=== PATIENT | male | born 1990 | race Hispanic/Latino ===

== ENCOUNTER 2023-03-21 18:12 | Emergency (ER) | payer OTHER ==
[2023-03-21] MEDS ORDERED: BUPIVACAINE 0.5% PF 10 ML VIAL ONE (18:48)
[2023-03-21] MEDS ORDERED: LIDOCAINE 1% 20 ML MDV ONE (18:48)
[2023-03-21] MEDS ORDERED: CEFAZOLIN SODIUM 1 GM/VIAL ONE (18:49)
[2023-03-21 18:57] LABS: Absolute Lymphocytes (CBC) 1.5 K/uL (0.7-4.9); Hematocrit 39.2 % (39.6-49.0); Lymphocytes % 22.5 % (15.3-44.8); MCV 89.6 fL (80-100); MPV 7.8 fL (7.6-11.3); Platelets 281 thou/uL (152-406); RBC Red Blood Cell Count 4.38 M/uL (4.33-5.43)
[2023-03-21 19:02] LABS: Protime INR 1.17
[2023-03-21] MEDS ORDERED: MORPHINE 4 MG/ML SYR ONE (19:05)
[2023-03-21] MEDS ORDERED: NA CHLORIDE 0.9% 1,000 ML ONE (19:06)
[2023-03-21] MEDS ORDERED: ONDANSETRON 4 MG/2 ML VIAL ONE (19:06)
[2023-03-21] MEDS ORDERED: TDAP (DIPHTH,PERTUSS(ACELL),TET VAC) 0.5 ML VIAL IMVAC ONE (19:06)
[2023-03-21 19:19] LABS: Potassium 3.8 mEq/L (3.5-5.1)
--- NOTE | 2023-03-21 20:22 | RAD REPORT ---
EXAM DESCRIPTION: RAD - Hand Right 3 View - 03/21/2023 8:03 pm CLINICAL HISTORY: Right hand pain status post injury FINDINGS: A portion of the third distal phalanx has been amputated No dislocation
--- NOTE | 2023-03-21 21:20 | EDPHYS ---
Physician Documentation [facility] Name: Shashi Tesfaye Jr Age: 32 yrs Sex: Male : 1990 Arrival Date: 03/21/2023 Time: 18:12 Bed 15 Private MD: ED Physician Roscoe Tate HPI: 03/21 18:45 This 32 yrs old Male presents to ER via Law [employer] with complaints of cp Finger Injury. 18:45 The patient or guardian reports injury. cp 18:45 The complaints affect the distal phalanx right middle finger. Context: resulted from a cp crush injury, metal cell door. Onset: The symptoms/episode began/occurred today. Associated signs and symptoms: The patient has no apparent associated signs or symptoms. Historical: - Allergies: 18:26 No Known Allergies; eh3 - Immunization history:: Adult Immunizations up to date. - Social history:: Smoking status: unknown. ROS: 18:50 MS/extremity: Positive for injury or acute deformity, of the distal phalanx of right cp middle finger. 18:50 Constitutional: Negative for body aches, chills, fever, poor PO intake. cp 18:50 Respiratory: Negative for cough, shortness of breath, wheezing. 18:50 All other systems are negative. Exam: 19:00 Constitutional: The patient appears in no acute distress, alert, awake, cp non-diaphoretic, well developed, well nourished, uncomfortable. 19:00 Head/Face: Normocephalic, atraumatic. cp 19:00 Neck: ROM/movement: is normal, is supple, without pain, no range of motions limitations. 19:00 Chest/axilla: Inspection: normal. 19:00 Cardiovascular: Rate: normal, Rhythm: regular. 19:00 Respiratory: the patient does not display signs of respiratory distress, Respirations: normal, no use of accessory muscles, no retractions, labored breathing, is not present, Breath sounds: are clear throughout, no decreased breath sounds, no stridor, no wheezing. 19:00 Abdomen/GI: Exam negative for discomfort, distension, guarding, Inspection: abdomen appears normal. 19:00 Musculoskeletal/extremity: Extremities: grossly normal except: noted in the right middle finger: Exam of right middle finger shows complete amputation through proximal portion of distal phalanx of right middle finger. Noted to bony exposure and mild bleeding once dressing is removed, Perfusion: the extremity is normally perfused throughout, Severe pain noted. Vital Signs: 18:32 BP 148 / 82; Pulse 72; Resp 18; Temp 98.4(O); Pulse Ox 99% on R/A; Weight 83.46 kg; eh3 18:32 BP 148 / 82; Pulse 72; Resp 18; Temp 98.4; Pulse Ox 99% on R/A; eh3 19:25 BP 134 / 78; Pulse 56; Resp 17; Pulse Ox 100% ; vc1 20:00 BP 135 / 78; Pulse 63; Resp 17; Temp 100; vc1 20:45 BP 139 / 76; Pulse 74; Resp 17; Pulse Ox 99% ; vc1 22:15 BP 141 / 80; Pulse 60; Resp 17; Pulse Ox 98% ; vc1 MDM: 18:38 Patient medically screened. cp 19:00 Differential diagnosis: dislocation, open fracture, closed fracture, contusion. 20:45 Data reviewed: vital signs, nurses notes, lab test result(s), radiologic studies, plain cp films. 20:45 I considered the following discharge prescriptions or medication management in the emergency department Medications were administered in the Emergency Department. See MAR Digital block performed using approximately 6 cc of a 50-50 mixture of 1% lidocaine without epi and 0.5% Marcaine. ED course: VSS. Pressure dressing applied. Consult with hand surgeon at [facility], DR Carpio will accept after discussion. 03/21 18:40 Order name: Basic Metabolic Panel; Complete Time: 19:32 cp 03/21 18:40 Order name: CBC with Diff; Complete Time: 19:32 cp 03/21 18:40 Order name: PT-INR; Complete Time: 19:32 cp 03/21 19:32 Order name: XRAY Hand RIGHT 3 View; Complete Time: 20:43 cp 03/21 18:40 Order name: Labs collected and sent; Complete Time: 18:50 cp 03/21 20:16 Order name: Misc. Order: pressure dressing; Complete Time: 20:36 cp Administered Medications: 18:55 Drug: ceFAZolin IVPB 1 grams Route: IVPB; Site: left antecubital; 3 18:55 Drug: morphine IVP or IV 4 mg Route: IVP; Infused Over: 4 mins; Site: left antecubital; 3 21:18 Follow up: Response: No adverse reaction; Marked relief of symptoms; Pain is decreased vc1 18:55 Drug: Ondansetron IVP 4 mg Route: IVP; Site: left antecubital; eh3 21:18 Follow up: Response: No adverse reaction; Marked relief of symptoms; Nausea is decreasedvc1 18:55 Drug: NS 0.9% IV 1000 ml Route: IV; Rate: 1 bolus; Site: left antecubital; 3 19:00 Drug: Tetanus-Diphtheria Toxoid IM Adult 0.5 ml {Technician: [employer] ([employer]). 3 Exp: 09/01/2023. Lot #: [id number]. } Route: IM; Site: right deltoid; 21:18 Follow up: Response: (VIS) Vaccine information sheet provided today. Questions and/or vc1 concerns addressed. VIS edition date: Mar 20, 2021.; No adverse reaction 19:30 Drug: Lidocaine Infiltration (2 %) 5 ml {Note: administered to right middle finger by vc1 PA. 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 Pressure dressing applied. Consult with hand surgeon at [facility]. 03/22 22:29 22:28 Differential diagnosis: dislocation, open fracture, closed fracture, contusion, cpcp
--- NOTE | 2023-03-21 21:20 | ER ---
Nurse's Notes 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 Coronavirus screen: Vaccine status: Patient reports receiving the 2nd dose of the covid vaccine. Ebola Screen: No symptoms or risks identified at this time. Risk Assessment: Do you want to hurt yourself or someone else? Patient reports no desire to harm self or others. Onset of symptoms was March 21, 2023. 18:25 Method Of Arrival: Law Enforcement: [place] [employer] 3 18:25 Acuity: TEJAS 3 eh3 18:32 Initial Sepsis Screen: Does the patient meet any 2 criteria? No. Patient's initial 3 sepsis screen is negative. Does the patient have a suspected source of infection? No. Patient's initial sepsis screen is negative. Triage Assessment: 18:26 General: Appears in no apparent distress. uncomfortable, Behavior is calm, cooperative, eh3 appropriate for age. Pain: Complains of pain in right hand. Neuro: Level of Consciousness is awake, alert, obeys commands, Oriented to person, place, time, situation. Cardiovascular: Capillary refill < 3 seconds Patient's skin is warm and dry. Respiratory: Airway is patent Respiratory effort is even, unlabored, Respiratory pattern is regular, symmetrical. GI: Abdomen is round non-distended. Derm: Skin is pink, warm \T\ dry. Musculoskeletal: Circulation, motion, and sensation intact. Injury Description: Amputation sustained to dorsal aspect of distal phalanx of right middle finger and palmar aspect of distal phalanx of right middle finger is complete, was sustained 30-60 minutes ago. Historical: - Allergies: 18:26 No Known Allergies; eh3 - Immunization history:: Adult Immunizations up to date. - Social history:: Smoking status: unknown. Screenin:33 [facility] ED Fall Risk Assessment (Adult) Score/Fall Risk Level 0 - 2 = Low Risk. Abuse eh3 screen: Denies threats or abuse. Denies injuries from another. Nutritional screening: No deficits noted. Tuberculosis screening: No symptoms or risk factors identified. Assessment: 18:33 Reassessment: No changes from previously documented assessment. See triage assessment. eh3 19:00 Reassessment: Patient appears in no apparent distress at this time. Patient and/or eh3 family updated on plan of care and expected duration. Pain level reassessed. Patient is alert, oriented x 3, equal unlabored respirations, skin warm/dry/pink. 20:00 Reassessment: No changes from previously documented assessment. Patient and/or family vc1 updated on plan of care and expected duration. Pain level reassessed. Patient is alert, oriented x 3, equal unlabored respirations, skin warm/dry/pink. 21:00 Reassessment: No changes from previously documented assessment. Patient and/or family vc1 updated on plan of care and expected duration. Pain level reassessed. Patient is alert, oriented x 3, equal unlabored respirations, skin warm/dry/pink. waiting on [facility] to accept transfer. 21:59 Reassessment: Attempted to call report, asked to call back in 15 minutes. vc1 22:25 Reassessment: No changes from previously documented assessment. Patient and/or family vc1 updated on plan of care and expected duration. Pain level reassessed. Patient is alert, oriented x 3, equal unlabored respirations, skin warm/dry/pink. Vital Signs: 18:32 BP 148 / 82; Pulse 72; Resp 18; Temp 98.4(O); Pulse Ox 99% on R/A; Weight 83.46 kg; eh3 18:32 BP 148 / 82; Pulse 72; Resp 18; Temp 98.4; Pulse Ox 99% on R/A; eh3 19:25 BP 134 / 78; Pulse 56; Resp 17; Pulse Ox 100% ; vc1 20:00 BP 135 / 78; Pulse 63; Resp 17; Temp 100; vc1 20:45 BP 139 / 76; Pulse 74; Resp 17; Pulse Ox 99% ; vc1 22:15 BP 141 / 80; Pulse 60; Resp 17; Pulse Ox 98% ; vc1 ED Course: 18:21 Patient arrived in ED. 3 18:26 Triage completed. 3 18:26 Arm band placed on. 3 18:33 Sanchez Nelson PA is PHCP. cp 18:33 Roscoe Tate DO is Attending Physician. cp 18:33 Patient has correct armband on for positive identification. Bed in low position. Call eh3 light in reach. Side rails up X2. Security at bedside. Provided Education on: Use of call garcia. Pulse ox on. NIBP on. 18:46 Nori Lay, MER is Primary Nurse. eh3 18:46 Inserted saline lock: 20 gauge in left antecubital area, using aseptic technique. Blood eh3 collected. 19:30 Assist provider with nerve block (digital) of right middle fingernail Set up for vc1 procedure. Performed by Sanchez LOONEY Patient tolerated well. 20:05 XRAY Hand RIGHT 3 View In Process Unspecified. EDMS 20:45 Connected with Madeline ([phone]) for transfer to [facility]. mb4 21:02 Madeline advised [place] has no beds. Connected her with C. Page to discuss options. mb4 21:06 Contaced [facility] transfer [place]. Spoke to Orin. mb4 21:36 Connected Anna Marie Nelson for doc-to-doc. mb4 21:43 Acceptance at [facility] 2141 by Shawna Cox RN. mb4 21:59 [facility] sending crew for transport. mb4 22:28 Patient transferred, IV remains in place. vc1 Administered Medications: 18:55 Drug: ceFAZolin IVPB 1 grams Route: IVPB; Site: left antecubital; eh3 18:55 Drug: morphine IVP or IV 4 mg Route: IVP; Infused Over: 4 mins; Site: left antecubital; eh3 21:18 Follow up: Response: No adverse reaction; Marked relief of symptoms; Pain is decreased vc1 18:55 Drug: Ondansetron IVP 4 mg Route: IVP; Site: left antecubital; eh3 21:18 Follow up: Response: No adverse reaction; Marked relief of symptoms; Nausea is decreasedvc1 18:55 Drug: NS 0.9% IV 1000 ml Route: IV; Rate: 1 bolus; Site: left antecubital; eh3 19:00 Drug: Tetanus-Diphtheria Toxoid IM Adult 0.5 ml {Back Maker: [employer] ([employer]). eh3 Exp: 09/01/2023. Lot #: [id number]. } Route: IM; Site: right deltoid; 21:18 Follow up: Response: (VIS) Vaccine information sheet provided today. Questions and/or vc1 concerns addressed. VIS edition date: Mar 20, 2021.; No adverse reaction 19:30 Drug: Lidocaine Infiltration (2 %) 5 ml {Note: administered to right middle finger by vc1 AAYUSH Martin.} Volume: 5 ml; Route: Infiltration; Site: affected area; 19:30 Drug: Bupivacaine Infiltration (0.5 %) 5 ml {Note: administered to right middle finger vc1 by AAYUSH Martin.} Volume: 10 ml; Route: Infiltration; Site: affected area; Medication: 19:05 Vaccine Information Statement (VIS) provided today. Questions and/or concerns vc1 addressed. VIS edition date: March 20, 2021. Outcome: 21:20 ER care complete, transfer ordered by MD. chadwick 22:28 Transferred by ground EMS to [facility], Transfer form completed. X-rays sent vc1 w/ patient. 22:28 Condition: stable 22:28 Instructed on the need for transfer. 22:38 Patient left the ED. mb4 Signatures: Dispatcher [employer] EDMS Sanchez Nelson PA PA cp Baxter, Mackenzie mb4 Juliana Garcia RN RN vc1 Nori Lay, MER RN eh3 Corrections: (The following items were deleted from the chart) 20:31 20:30 Contacted [facility] transfer center, spoke mb4 mb4 21:12 21:06 Contaced [facility] mb4 mb4
[2023-03-22 01:13] VITALS: TEMP 100
[2023-03-22 01:21] VITALS: BP 141/80; O2SAT 98
== END 2023-03-21 22:38 | disposition short-term general hospital (02) ==
LOC: ER 18:12
DX: S68.612A Complete traumatic transphalangeal amputation of right middle finger, initial encounter (principal); Z23 Encounter for immunization
CPT/HCPCS: 85025; 80048; 36415; 85610; 73130; 90471; 64450; 96375; 96374; 99285; J2001; J2405; J0690; J7030